=== PATIENT | female | born 1930 | race Caucasian/White ===

== ENCOUNTER 2016-02-29 09:00 | Outpatient (CLI) | payer MEDICARE, BC ==
[2016-02-29 12:22] LABS: #Basophils 0.1 thou/uL (0.0-0.2); #Eosinphils 0.5 thou/uL (0.0-0.7); #Lymphocytes 3.9 thou/uL (1.20-3.40); #Monocytes 0.5 thou/uL (0.11-0.59); #Neutrophils 4.3 thou/uL (1.40-6.50); %Basophils 1.2 % (0.0-1.0); %Eosinophils 5.4 % (0.0-10.0); %Monocytes 5.2 % (0.0-10.0); Hematocrit 45.1 % (36.0-47.0); Mean Platelet Volume 7.3 fL (7.4-10.4); Red Blood Cell (RBC) Count 4.94 mill/uL (4.20-5.40); White Blood Cell (WBC) Count 9.3 thou/uL (4.8-10.8)
[2016-02-29 12:26] LABS: Bilirubin Negative (Negative); Blood, Urine Negative (Negative); Glucose, Urine (Dipstick) Negative (Negative); Ketone, Urine Negative (Negative); Nitrite Negative (Negative); Protein, Urine (Dipstick) Negative (Neg-Trace); Urobilinogen 0.2 mg/dL (0.2-1.0)
[2016-02-29 12:36] LABS: Bacteria/HPF Rare-Few HPF (None Seen); RBC/HPF None Seen HPF (0-3); Squamous Epithelial 0-3 HPF (0-3); WBC/HPF 0-3 HPF (0-3)
[2016-02-29 12:39] LABS: ALT (SGPT) 26 U/L (0-55); AST (SGOT) 19 U/L (5-34); Alkaline Phosphatase 89 U/L (40-150); Anion Gap 12 mmol/L (10-20); BUN (Urea Nitrogen) 13 mg/dL (9.8-20.1); Bilirubin, Total 0.8 mg/dL (0.2-1.2); Calc. Creatinine Clearance 0 mL/min (70-130); Calcium 9.2 mg/dL (7.8-10.44); Carbon Dioxide 26 mmol/L (23-31); Chloride 107 mmol/L (98-107); Estimated GFR-MDRD 75; Globulin 2.4 g/dL (2.4-3.5); LDL Cholesterol, Calculated 57 mg/dL; Protein, Total 6.7 g/dL (5.8-8.1)
== END 2016-02-29 09:01 | disposition home or self-care (01) ==
LOC: NAVSJIPCSP 09:00
PROVIDERS: ATTEND Internal Medicine
DX: E78.5 Hyperlipidemia, unspecified (principal); I11.9 Hypertensive heart disease without heart failure; Z79.899 Other long term (current) drug therapy
CPT/HCPCS: 36415; 80053; 80061; 81003; 81015; 84443; 85025

== ENCOUNTER 2016-05-30 08:48 | Outpatient (CLI) | payer MEDICARE, BC ==
[2016-05-30 13:01] LABS: Cardiac Risk 2.7 (Less than 4.5)
== END 2016-05-30 08:49 | disposition home or self-care (01) ==
LOC: NAVSJIPCSP 08:48
PROVIDERS: ATTEND Internal Medicine
DX: E78.5 Hyperlipidemia, unspecified (principal)
CPT/HCPCS: 36415; 80061

== ENCOUNTER 2016-08-31 13:36 | Emergency (ER) | payer MEDICARE, BC ==
[2016-08-31] MEDS ORDERED: Ondansetron ODT 4 MG TAB ONE (14:05)
[2016-08-31] MEDS ORDERED: Cyclobenzaprine 10 MG TAB ONE (14:10)
--- NOTE | 2016-08-31 15:24 | RAD ---
3 VIEWS LUMBOSACRAL SPINE: Date: 08/31/16 COMPARISON: None. HISTORY: Fall this morning with right lower back pain. FINDINGS: Three views of the lumbosacral spine show slight wedge compression deformity of the L2 vertebral bod y with approximately 10% height loss. This may be acute or chronic. Vertebral bodies demonstrate nor mal alignment without subluxation. Small osteophytes are seen throughout the lumbar spine. Atherosclerotic calcifications are seen in the aorta. Surgical clips are seen in the right upper kathya drant, likely from cholecystectomy. IMPRESSION: 1. Mild degenerative changes of the lumbar spine. 2. There appears to be slight compression deformity of the L2 vertebral body. This may be an acute or chronic compression fracture. POS: [facility]
== END 2016-08-31 14:19 | disposition home or self-care (01) ==
LOC: NAV ERS 13:36
DX: M54.5 Low back pain (principal); J44.9 Chronic obstructive pulmonary disease, unspecified; I10 Essential (primary) hypertension; F17.210 Nicotine dependence, cigarettes, uncomplicated; Z79.82 Long term (current) use of aspirin; Z79.899 Other long term (current) drug therapy; X50.1XXA Overexertion from prolonged static or awkward postures, initial encounter
CPT/HCPCS: 72100; Q0162

== ENCOUNTER 2016-09-04 09:12 | Outpatient (CLI) | payer MEDICARE, BC ==
[2016-09-04 12:25] LABS: Cardiac Risk 2.1 (Less than 4.5)
== END 2016-09-04 09:13 ==
LOC: NAVSJIPCSP 09:12
PROVIDERS: ATTEND Internal Medicine
DX: E78.5 Hyperlipidemia, unspecified (principal); F32.4 Major depressive disorder, single episode, in partial remission; Z79.899 Other long term (current) drug therapy
CPT/HCPCS: 36415; 80061

== ENCOUNTER 2016-09-15 11:47 | Emergency (ER) | payer MEDICARE, BC ==
--- NOTE | 2016-09-15 13:08 | RAD ---
LEFT KNEE 4 VIEWS: Date: 09/15/16 HISTORY: Left knee pain. FINDINGS/IMPRESSION: Mild degenerative changes are present. No fracture, dislocation, or bony destruction identified. POS: [facility]
== END 2016-09-15 13:09 | disposition home or self-care (01) ==
LOC: NAV ERS 11:47
DX: M25.562 Pain in left knee (principal); I10 Essential (primary) hypertension; F17.210 Nicotine dependence, cigarettes, uncomplicated; J44.9 Chronic obstructive pulmonary disease, unspecified; Z79.82 Long term (current) use of aspirin; Z79.899 Other long term (current) drug therapy

== ENCOUNTER 2018-01-13 12:26 | Outpatient (CLI) | payer MEDICARE, BC ==
--- NOTE | 2018-01-13 13:47 | RAD ---
TWO VIEWS CHEST: DATE: 01/13/2018. PROVIDED CLINICAL HISTORY: Shortness of breath. FINDINGS: Comparison 11/17/2014. Cardiac and mediastinal silhouette is within normal limits. Vascular calcific ation involves the aortic arch. No focal consolidation, pleural fluid, or pneumothorax apparent. IMPRESSION: No evidence for an acute cardiopulmonary process. POS: [facility]
== END 2018-01-13 12:27 | disposition home or self-care (01) ==
LOC: NAV RAD 12:26
PROVIDERS: ATTEND Internal Medicine Cardiovascular Disease
DX: R06.02 Shortness of breath (principal)
CPT/HCPCS: 71046

== ENCOUNTER 2019-11-24 11:13 | Emergency (ER) | payer MEDICARE, BC ==
[2019-11-24] MEDS ORDERED: Acetaminophen/Codeine 30-300mg Tablet ONE (11:41)
--- NOTE | 2019-11-24 12:11 | CT ---
CT BRAIN WITHOUT CONTRAST: HISTORY:Injury, headache COMPARISON:None FINDINGS: There are foci of decreased attenuation in the periventricular white matter, consistent with chronic small vessel ischemic disease. There are changes of cortical atrophy. No evidence of acute infarct, hemorrhage, midline shift or abnormal extra-axial fluid collections is seen. The ventricular size is appropriate and the basilar cisterns are patent. The bony calvarium is intact. The visualized paranasal sinuses and mastoid air cells are well aerated. IMPRESSION: No CT evidence of acute intracranial process.
--- NOTE | 2019-11-24 12:25 | CT ---
CT of the lumbar spine: 11/24/2019 COMPARISON: CT of the abdomen and pelvis 07/20/2018 History: Injury TECHNIQUE: Axial CT imaging at 2.5 mm intervals through the lumbar spine provided without contrast. C oronal and sagittal reformatted imaging obtained. FINDINGS: Evaluation for central canal and/or neural foraminal stenosis is limited on routine CT exam . There are bibasilar partially imaged reticulonodular densities, unchanged when compared to 07/20/2018 CT of the abdomen and pelvis. Scattered atherosclerotic calcifications are seen involving the abdominal aorta and its branches, not optimally assessed on this exam. There is an infrarenal abdominal aortic aneurysm suspected measuring in the 3.1 cm range, only partia lly visualized on this exam. No significant anterolisthesis or retrolisthesis is noted within the lumbar spine. There is a anterior wedge compression fracture primarily involving the superior endplate with a sligh t burst configuration given minimal osseous retropulsion involving the L2 vertebral body. This fracture appears stable when compared to 07/20/2018 CT of the abdomen and pelvis. T12-L1: Mild bilateral facet hypertrophy with no osseous cause of significant central canal or neural foraminal stenosis. L1-2: Mild central canal stenosis on the basis of disc osteophyte complex and slight osseous retropul estuardo associated with superior endplate fracture at L2. No osseous cause of significant neural foraminal stenosis. L2-3: Mild bilateral facet hypertrophy with no osseous cause of significant central canal or neural f oraminal stenosis. L3-4: There is bilateral facet hypertrophy and hypertrophy of the ligamentum flavum. Probable mild ce ntral canal stenosis. Bilateral facet hypertrophy with probable mild bilateral neural foraminal stenosis. L4-5: There is disc space narrowing and disc bulge. There is prominent bilateral facet hypertrophy an d hypertrophy of ligamentum flavum. Moderate central canal stenosis is suspected. Moderate bilateral neural foraminal stenosis noted. L5-S1: Bilateral facet hypertrophy is noted. Probable mild/moderate central canal stenosis on the bas is of disc bulge and facet hypertrophy. Mild right and moderate left neural foraminal stenosis suspected. No worrisome lytic or blastic bone lesion. No acute fracture or dislocation. IMPRESSION: Chronic findings as detailed above. No evidence for an acute fracture is seen within the lumbar spine.
== END 2019-11-24 12:45 | disposition home or self-care (01) ==
LOC: NAV ERS 11:13
DX: S39.012A Strain of muscle, fascia and tendon of lower back, initial encounter (principal); S00.03XA Contusion of scalp, initial encounter; S00.83XA Contusion of other part of head, initial encounter; J44.9 Chronic obstructive pulmonary disease, unspecified; I10 Essential (primary) hypertension; F17.210 Nicotine dependence, cigarettes, uncomplicated; Z79.899 Other long term (current) drug therapy; Z79.82 Long term (current) use of aspirin; W18.30XA Fall on same level, unspecified, initial encounter
CPT/HCPCS: 70450; 72131

== ENCOUNTER 2020-02-14 11:21 | Inpatient (IN) | payer MEDICARE, BC ==
[~2020-02-14 11:21] MED LIST: Iopamidol 370 76% 100 ML VIAL ONE
[2020-02-14 11:52] LABS: #Lymphocytes 0.9 thou/uL (1.20-3.40); #Monocytes 0.4 thou/uL (0.11-0.59); #Neutrophils 4.7 thou/uL (1.40-6.50); %Basophils 0.3 % (0.0-1.0); %Lymphocytes 14.6 % (21.0-51.0); %Monocytes 5.9 % (0.0-10.0); %Neutrophils 79.2 % (42.0-75.0); Hemoglobin 13.5 g/dL (12.0-16.0); Mean Corpuscular Hemoglobin 27.3 pg (27.0-31.0); Mean Corpuscular Volume 87.9 fL (78.0-98.0); Mean Platelet Volume 9.1 fL (7.4-10.4); Platelet Count 125 thou/uL (130-400); RBC Distribution Width 13.2 % (11.5-14.5); Red Blood Cell (RBC) Count 4.97 mill/uL (4.20-5.40); White Blood Cell (WBC) Count 5.9 thou/uL (4.8-10.8)
--- NOTE | 2020-02-14 12:05 | RAD ---
EXAM: XR Chest 1 View Portable PROVIDED CLINICAL HISTORY: Shortness of breath COMPARISON: 07/20/2018 FINDINGS: Cardiac and mediastinal silhouettes is within normal limits for portable technique. Vascular calcific ation is seen involving the aortic arch. Prominence of the pulmonary interstitium is redemonstrated. Bibasilar subsegmental atelectatic changes are seen. No focal consolidation, pleural fluid or pneumothorax evident. IMPRESSION: No evidence for focal consolidation.
[2020-02-14 12:09] LABS: ALT (SGPT) 18 U/L (8-55); AST (SGOT) 26 U/L (5-34); Albumin 3.6 g/dL (3.4-4.8); Alkaline Phosphatase 67 U/L (40-110); Anion Gap 18 mmol/L (10-20); BUN (Urea Nitrogen) 21 mg/dL (9.8-20.1); Bilirubin, Total 0.4 mg/dL (0.2-1.2); Calc. Creatinine Clearance 0 mL/min (70-130); Calcium 7.9 mg/dL (7.8-10.44); Carbon Dioxide 19 mmol/L (23-31); Chloride 103 mmol/L (98-107); Globulin 2.5 g/dL (2.4-3.5); Glucose 101 mg/dL (83-110); Potassium 3.8 mmol/L (3.5-5.1); Protein, Total 6.1 g/dL (6.0-8.3); Sodium 136 mmol/L (136-145)
--- NOTE | 2020-02-14 13:49 | CT ---
CT arteriogram chest with IV contrast and 3-D imaging HISTORY: Dyspnea. COMPARISON: 02/26/2018. FINDINGS: There is good contrast opacification of the pulmonary arteries and thoracic aorta with norm al branching of the great vessels at the aortic arch. Prominent arterial calcification. Lungs are hyperinflated with scattered areas of parenchymal scarring. Small peripheral focus of groun dglass infiltrate now lies at the far anterior aspect of the right upper lobe, abutting the pleura. Of doubtful clinical significance. No lobar consolidation. Tiny nonspecific subpleural nodules within the left upper lobe are stable. Reactive appearing lymph nodes are scattered about the mediastinum, measuring up to 2.2 cm x 1.0 cm g reatest diameters at the subcarinal level. Calcified granulomata of the abdomen are consistent with healed granulomatous disease. Old right rib fractures noted. IMPRESSION : No evidence of pulmonary embolus.
[2020-02-14] MEDS ORDERED: Ondansetron PF 4 MG/2 ML Vial ONE (14:18)
[2020-02-14 15:27] LABS: SARS-CoV-2 NAA Rapid Test DETECTED (NotDetected)
[2020-02-14] MEDS ORDERED: Dexamethasone 20 MG/5 ML VIAL ONE (15:53)
[2020-02-14 18:05] VITALS: BMI 21.9
[2020-02-14] MEDS: Zinc Sulfate 220 MG CAP PO SCH (20:49)
[2020-02-15 05:34] LABS: Anion Gap 16 mmol/L (10-20); BUN (Urea Nitrogen) 20 mg/dL (9.8-20.1); Band 6 % (5-11); Calc. Creatinine Clearance 39 mL/min (70-130); Calcium 7.8 mg/dL (7.8-10.44); Carbon Dioxide 19 mmol/L (23-31); Chloride 107 mmol/L (98-107); Glucose 131 mg/dL (83-110); Hemoglobin 12.9 g/dL (12.0-16.0); Lymphocytes 20 % (21-51); MDiff Complete? YES; Mean Corpuscular HGB CONC 32.4 g/dL (32.0-36.0); Mean Corpuscular Volume 86.6 fL (78.0-98.0); Mean Platelet Volume 9.1 fL (7.4-10.4); Monocytes 8 % (0-10); Neutrophil 60 % (42-75); Platelet Count 128 thou/uL (130-400); Platelet Morphology Comment Appears Adequate; Potassium 3.7 mmol/L (3.5-5.1); RBC Morphology Normal; Reactive Lymphocytes 6 % (0-10); Red Blood Cell (RBC) Count 4.61 mill/uL (4.20-5.40); Sodium 138 mmol/L (136-145); White Blood Cell (WBC) Count 3.5 thou/uL (4.8-10.8)
[2020-02-15] MEDS: Levothyroxine Sodium 88 MCG TAB PO SCH (05:54)
[2020-02-15] MEDS: Enoxaparin Sodium 40 MG/0.4 ML SYRINGE SC SCH (08:50)
[2020-02-15] MEDS: Cholecalciferol 1,000 UNITS (25 MCG) TAB PO SCH (08:51)
[2020-02-15] MEDS: Lisinopril 10 MG TAB PO SCH (08:52)
[2020-02-15] MEDS: Zinc Sulfate 220 MG CAP PO SCH ×2 (08:52→22:23)
[2020-02-15] MEDS: Atorvastatin Calcium 40 MG TAB PO SCH (08:52)
[2020-02-15] MEDS: Aspirin 81 mg Enteric Coated Tablet PO SCH (08:53)
[2020-02-15] MEDS: Atenolol 25 MG TAB PO SCH (08:54)
[2020-02-15] MEDS: Amlodipine 5 MG TAB PO SCH (08:54)
[2020-02-15] MEDS: Dexamethasone 4 MG TAB PO SCH (08:55)
[2020-02-15] MEDS: TRELEGY ELLIPTA INHALER INH SCH (09:48)
[2020-02-15] MEDS ORDERED: Ipratropium/Albuterol Sulfate 4 GM AER IH SCH ×2 (13:00→22:15)
--- NOTE | 2020-02-15 13:46 | PRG ---
DATE OF SERVICE: 02/15/2020 SUBJECTIVE: Ms. Bateman is resting in bed. She is upset that she cannot get up on her own. I advised her that it is for her own benefit and safety. She denies any chest pain or shortness of breath. OBJECTIVE: VITAL SIGNS: She is afebrile. Heart rate 76, respirations 20, oxygen saturation 93% on 3 L, blood pressure 129/61. CARDIOVASCULAR: S1, S2 plus. RESPIRATORY: Normal vesicular breath sounds with occasional rhonchi. ABDOMEN: Soft, nontender. Bowel sounds heard in all quadrants. EXTREMITIES: Without cyanosis or clubbing. CENTRAL NERVOUS SYSTEM: Generalized weakness, otherwise nonfocal. IMPRESSION: 1. Recent COVID-19 infection. 2. Resolved diarrhea. 3. Coronary artery disease. 4. Hypertension. 5. Dyslipidemia. 6. Hypothyroidism. 7. Deconditioning. PLAN: 1. Continue current medications. 2. Heart healthy diet. 3. DVT prophylaxis with Lovenox. 4. Decubitus precautions. 5. Stress ulcer prophylaxis. 6. Monitor respiratory status. 7. She has been switched to Combivent for some reason. She is on DuoNeb at home and she has end-stage COPD. We will switch her back to DuoNebs. PT/OT eval and treat. Job ID: [id number]
--- NOTE | 2020-02-15 14:40 | HP ---
CHIEF COMPLAINT: Cough and shortness of breath with COVID positive by RT-PCR. BRIEF HISTORY: This is an 89-year-old female with history of chronic obstructive pulmonary disease and chronic hypoxemic respiratory failure, on home oxygen, presented to the emergency room because she was feeling weak with shortness of breath and diarrhea. Her laboratory values showed a normal lactic acid level, but an elevated D-dimer. CTA lungs did not show any pulmonary emboli, but showed peripheral localized ground-glass infiltrate. She had a rapid COVID RT-PCR done which turned out to be positive. Her influenza screen was negative. She lives alone at home and it was decided to admit her to the hospital for close monitoring and management. The patient stated that she was weak and she was having trouble getting out of bed. She was maintaining her oxygen saturation on her baseline oxygen of 2 L via nasal cannula. Denies any myalgia. She was admitted to the hospital with Decadron 6 mg daily, vitamin D 2000 international units daily, Zinc 220 mg b.i.d., and Lovenox 40 mg daily along with her home medications. PAST MEDICAL HISTORY: 1. Chronic obstructive pulmonary disease, likely GOLD stage 3 to 4. 2. Chronic hypoxemic respiratory failure. 3. Hypertension. 4. Dyslipidemia. 5. Coronary artery disease. 6. Hypothyroidism. PAST SURGICAL HISTORY: 1. Cholecystectomy. 2. Benign right breast mass removal. FAMILY HISTORY: Positive for coronary artery disease in both her parents. PSYCHOSOCIAL HISTORY: Long-standing history of smoking. She has more than a [id number] history of smoking. She quit in 2016. Denies any alcohol or recreational drug abuse. She lives at home alone and is active and independent. ALLERGIES: NO KNOWN DRUG ALLERGIES. MEDICATIONS: Her current med list shows that she is on; 1. Norvasc 10 mg daily. 2. Ecotrin 81 mg daily. 3. Tenormin 25 mg daily. 4. Lipitor 80 mg daily. 5. Vitamin D3 2000 units daily. 6. Levoxyl 88 mcg daily. 7. Lisinopril 10 mg daily. 8. Trelegy Ellipta one inhalation daily. 9. Tramadol 50 mg q.8 p.r.n. 10. She is also on Combivent q.i.d., because at home she was taking the DuoNeb. We will discontinue Combivent and place her on DuoNeb. REVIEW OF SYSTEMS: CARDIOVASCULAR: Denies any chest pain, paroxysmal nocturnal dyspnea, orthopnea, or palpitations. RESPIRATORY SYSTEM: Occasional cough. Denies any expectoration. Denies any pleuritic-type chest pain. Denies any hemoptysis. GASTROINTESTINAL SYSTEM: Diarrhea a couple of episodes, but no hematemesis, melena, or hematochezia. No nausea or vomiting. GENITOURINARY SYSTEM: Denies any frequency, urgency, dysuria, hematuria. CENTRAL NERVOUS SYSTEM: Generalized weakness. No fainting spells. No seizure activity. EXTREMITIES: Frequent joint pain. ENT: Denies any changes with speech, vision, hearing, or swallowing. SKIN: Denies any rash. PHYSICAL EXAMINATION: GENERAL: Pleasant 89-year-old female, who is resting in bed in the emergency room. Denies any complaints. VITAL SIGNS: She is afebrile. She has a T-max of 100.1, heart rate 87, respirations 19, oxygen saturation 98% on 2 L, blood pressure 140/65. HEENT: Normocephalic, atraumatic. Pupils equally reactive to light and accommodation. No JVD, thyromegaly, cervical adenopathy, or throat exudates. No carotid bruits. CARDIOVASCULAR SYSTEM: S1 and S2 plus. Rate and rhythm regular. RESPIRATORY SYSTEM: Normal vesicular breath sounds heard in all lung sharpe. Prolonged expiratory phase and scattered rhonchi. ABDOMEN: Soft, nontender. Bowel sounds heard in all quadrants. EXTREMITIES: Without cyanosis or clubbing. CENTRAL NERVOUS SYSTEM : Generalized weakness, otherwise nonfocal. LABORATORY VALUES: Show a white count of 5.9, H and H are 13.5 and 43.7, platelet count is slightly low at 125, 79.2% neutrophils with decreased lymphocytes. Sodium 136, potassium 3.8, BUN and creatinine are 21 and 0.9. AST and ALT are 26 and 18. D-dimer was elevated at 1.11. IMPRESSION: 1. COVID-19 positive. 2. Chronic obstructive pulmonary disease. 3. Chronic hypoxemic respiratory failure. 4. Coronary artery disease. 5. Hypertension. 6. Dyslipidemia. 7. Hypothyroidism. 8. Depression and anxiety. PLAN: 1. Admit to hospital as inpatient. 2. Respiratory droplet precautions. 3. Start Decadron 6 mg daily, vitamin D3 2000 international units daily, and zinc 220 mg b.i.d. 4. Lovenox 40 mg daily. 5. Heart healthy diet. 6. Monitor respiratory status and breathing treatments as needed. 7. DVT prophylaxis-she will be on Lovenox. 8. Decubitus precautions. 9. Recheck CBC and BMP in the morning. 10. Resume home medications. 11. Heart healthy diet. 12. Discussed with the patient in detail. All questions answered. Job ID: [id number]
[2020-02-15] MEDS ORDERED: Ventolin HFA Inhaler 60 PUFF INHALER ONE (22:36)
[2020-02-16] MEDS: Levothyroxine Sodium 88 MCG TAB PO SCH (06:31)
[2020-02-16] MEDS: Ipratropium/Albuterol Sulfate 4 GM AER IH SCH ×4 (09:20→20:49)
[2020-02-16] MEDS: TRELEGY ELLIPTA INHALER INH SCH (09:20)
[2020-02-16] MEDS: Dexamethasone 4 MG TAB PO SCH (09:32)
[2020-02-16] MEDS: Amlodipine 5 MG TAB PO SCH (09:33)
[2020-02-16] MEDS: Aspirin 81 mg Enteric Coated Tablet PO SCH (09:34)
[2020-02-16] MEDS: Atorvastatin Calcium 40 MG TAB PO SCH (09:34)
[2020-02-16] MEDS: Atenolol 25 MG TAB PO SCH (09:34)
[2020-02-16] MEDS: Zinc Sulfate 220 MG CAP PO SCH ×2 (09:35→20:49)
[2020-02-16] MEDS: Lisinopril 10 MG TAB PO SCH (09:35)
[2020-02-16] MEDS: Cholecalciferol 1,000 UNITS (25 MCG) TAB PO SCH (09:35)
[2020-02-16] MEDS: Enoxaparin Sodium 40 MG/0.4 ML SYRINGE SC SCH (09:35)
--- NOTE | 2020-02-16 13:49 | PRG ---
DATE OF SERVICE: 02/16/2020 SUBJECTIVE: Ms. Bateman is participating with therapy. Therapy feels that she is stable enough to be taken off fall precautions and bed alarm. The patient states she is now constipated and she normally takes MiraLAX at home, so we will get her back on her MiraLAX. She denies any respiratory difficulty. No fever or chills. OBJECTIVE: VITAL SIGNS: She is afebrile. Heart rate 82, respirations 18, oxygen saturation 94% on 3 L, blood pressure this morning before her medicines was 171/75. I do not see any new ones documented, and I asked nursing to recheck and let me know if it is still more than 140/90. CARDIOVASCULAR SYSTEM: S1 and S2 plus. RESPIRATORY SYSTEM: Normal vesicular breath sounds. ABDOMEN: Soft, nontender. Bowel sounds heard in all quadrants. EXTREMITIES: Without cyanosis or clubbing. CENTRAL NERVOUS SYSTEM: Generalized weakness, otherwise nonfocal. IMPRESSION: 1. COVID infection. 2. Chronic obstructive pulmonary disease. 3. Chronic hypoxemic respiratory failure. 4. Hypertension. 5. Dyslipidemia. 6. Hypothyroidism. 7. Deconditioning. PLAN: 1. Continue current medications. 2. Resume MiraLAX 17 g in 8 ounces of water daily. 3. Combivent as needed. 4. COVID precautions. 5. Physical therapy. 6. Home medications. 7. Routine laboratory values. 8. Dr. Infante on-call from this evening. Job ID: [id number]
[2020-02-16] MEDS ORDERED: Polyethylene Glycol 3350 17 GM Packet PO SCH (14:00)
[2020-02-17] MEDS: Levothyroxine Sodium 88 MCG TAB PO SCH (05:51)
[2020-02-17] MEDS: Dexamethasone 4 MG TAB PO SCH (09:05)
[2020-02-17] MEDS: Aspirin 81 mg Enteric Coated Tablet PO SCH (09:06)
[2020-02-17] MEDS: Amlodipine 5 MG TAB PO SCH (09:06)
[2020-02-17] MEDS: Atorvastatin Calcium 40 MG TAB PO SCH (09:07)
[2020-02-17] MEDS: Atenolol 25 MG TAB PO SCH (09:07)
[2020-02-17] MEDS: Enoxaparin Sodium 40 MG/0.4 ML SYRINGE SC SCH (09:08)
[2020-02-17] MEDS: Ipratropium/Albuterol Sulfate 4 GM AER IH SCH ×4 (09:08→20:03)
[2020-02-17] MEDS: Cholecalciferol 1,000 UNITS (25 MCG) TAB PO SCH (09:08)
[2020-02-17] MEDS: Lisinopril 10 MG TAB PO SCH (09:08)
[2020-02-17] MEDS: TRELEGY ELLIPTA INHALER INH SCH (09:09)
[2020-02-17] MEDS: Zinc Sulfate 220 MG CAP PO SCH ×2 (09:09→20:02)
[2020-02-17] MEDS: Polyethylene Glycol 3350 17 GM Packet PO SCH (09:09)
[2020-02-17] MEDS: traMADol HCl 50 MG TAB PO PRN (14:12)
[2020-02-17] MEDS: Docusate 100 MG CAP PO SCH (20:02)
[2020-02-18] MEDS: Levothyroxine Sodium 88 MCG TAB PO SCH (05:21)
[2020-02-18] MEDS: Docusate 100 MG CAP PO SCH (08:40)
[2020-02-18] MEDS: Aspirin 81 mg Enteric Coated Tablet PO SCH (08:40)
[2020-02-18] MEDS: Zinc Sulfate 220 MG CAP PO SCH (08:40)
[2020-02-18] MEDS: Amlodipine 5 MG TAB PO SCH (08:41)
[2020-02-18] MEDS: Cholecalciferol 1,000 UNITS (25 MCG) TAB PO SCH (08:41)
[2020-02-18] MEDS: Atenolol 25 MG TAB PO SCH (08:41)
[2020-02-18] MEDS: Dexamethasone 4 MG TAB PO SCH (08:42)
[2020-02-18] MEDS: Atorvastatin Calcium 40 MG TAB PO SCH (08:42)
[2020-02-18] MEDS: Lisinopril 10 MG TAB PO SCH (08:42)
[2020-02-18] MEDS: Polyethylene Glycol 3350 17 GM Packet PO SCH (08:43)
[2020-02-18] MEDS: Enoxaparin Sodium 40 MG/0.4 ML SYRINGE SC SCH (08:43)
[2020-02-18] MEDS: TRELEGY ELLIPTA INHALER INH SCH (08:51)
[2020-02-18] MEDS: Ipratropium/Albuterol Sulfate 4 GM AER IH SCH (08:54)
--- NOTE | 2020-02-18 09:23 | PRG ---
DATE OF SERVICE: 02/17/[address] Landon Moreno. SUBJECTIVE: The patient feels weak with malaise, but is having no fever, chills, cough. Still complaining of some constipation, but has begun on her MiraLAX. She is having no respiratory distress, but does not feel well. OBJECTIVE: VITAL SIGNS: Show a temperature of 98, pulse 80, respirations 18, O2 sats 94% on 2 L, blood pressure 150/63. LUNGS: Clear. CARDIAC: Showed regular rhythm. ABDOMEN: Soft and nontender. SKIN/EXTREMITIES: Display no edema, clubbing, or cyanosis. ASSESSMENT: An 89-year-old white female with a history of COPD and chronic hypoxemia with requirement of 2 L cannula at home, who was had no change in her hypoxemia, but because of her risk, she was admitted to the hospital, has been started on Decadron 6 mg daily, vitamin D 2000 units daily, zinc 220 twice daily, and Lovenox 40 daily along with her home medications. She states she feels about the same with no deterioration in her respiratory status, but no improvement in her strength. She is working with therapy and is found to be safe to ambulate in the isolation room. She has been maintained on isolation and will be maintained on isolation for 10 days until she is symptom she will be monitored closely for deterioration of her cardiopulmonary status. Her constipation will be monitored closely that has remained symptom at this time and she will be continued with PT and OT in the isolation. Job ID: [id number]
[2020-02-18] MEDS: traMADol HCl 50 MG TAB PO PRN (10:54)
--- NOTE | 2020-02-18 11:08 | PRG ---
DATE OF SERVICE: 02/18/[address] Landon Moreno. SUBJECTIVE: The patient is having increased dyspnea, nausea, production of phlegm, and the significant desaturation on ambulation to the bathroom. Has had her O2 sats decreased to 93%, requiring 6 L of cannula and is being placed on a non-rebreather. Lungs show crackles in the bases. Respiratory rate increases to 30 with any exercise. She is not eating. States she is feeling worse. OBJECTIVE: LUNGS: Show crackles in the bases. CARDIAC: Shows rapid regular rhythm to 112. Respirations ranged from 20 to 30. ABDOMEN: Soft, nontender. ASSESSMENT: COVID-19 pneumonia with increasing respiratory failure and impending decompensation, provide treatment with Decadron in a patient with a history of chronic hypoxemia and chronic obstructive pulmonary disease. PLAN: Urgently transfer to [facility] as soon as bed is available. Maintain one-to-one nursing until that time. Increase oxygen supply to non-rebreather, which is the highest we have available here. Continue to inhale Combivent 4 times daily. Job ID: [id number]
[2020-02-18 11:11] VITALS: TEMP 97.7
[2020-02-18 11:44] VITALS: BP 156/70
--- NOTE | 2020-02-18 11:55 | RAD ---
XR Chest 1 View Portable HISTORY: Dyspnea.Covid 19 Hypoxemia COMPARISON: 02/14/2020 FINDINGS: The heart size is normal. There is tortuous. There is mild prominence of the pulmonary vasc ularity. The lungs are well expanded without focal areas of consolidation, pneumothorax or pleural effusions. IMPRESSION: No evidence of lobar pneumonia
--- NOTE | 2020-02-22 17:57 | PQF ---
CLINICAL DOCUMENTATION CLARIFICATION FORM: Dear : Michael Infante MD Date / Time: 02/22/2020 Please exercise your independent, professional judgment in responding to the clarification form. Clinical indicators are provided on the bottom of this form for your review Please check appropriate box(es): [ ] Acute Respiratory Failure: [ ] with Hypoxia [ ] with Hypercapnia [ ] Acute On Chronic Respiratory Failure: [ ] with Hypoxia [ ] with Hypercapnia [ ] Acute Respiratory Failure due to: (etiology) [ ] ARDS (Acute Respiratory Distress Syndrome) [ ] Chronic Respiratory Failure only [ ] with Hypoxia [ ] with Hypercapnia [ ] Respiratory Insufficiency [ ] Hypoxia [ ] Other diagnosis (Please specify if any) [ ] Unable to determine In addition, please specify: Present on Admission (POA): [ ] Yes [ ] No [ ] Unable to determine Physician Signature: Date/Time: For continuity of documentation, please document condition throughout progress notes and discharge summary. Thank You. To be completed by CDI/Coding staff for physician review: Present Clinical Indicators - Signs / Symptoms / Labs Results and Location in Medical Record [ ] ABG pH < 7.35 or > 7.45 [ ] Decreased oxygen saturation (<90% room air or < 95% on oxygen). Cyanosis/Hypoxia [ ] PCO2 > 50 mm Hg (PCO2 findings of 10-15 mm Hg above the patient's normal level if patient has COPD) [ ] PO2 < 60 mm Hg (PCO2 findings of 10-15 mm Hg below the patient's normal level if patient has COPD) [ ] Labored or rapid respirations (use of accessory muscles or inability to speak full sentences, air hunger) [x] Chronic hypoxic respiratory failure on home oxygen H&P on 02/14 [x] She states she feels about the same with no deterioration in her respiratory status Progress notes on 02/16 [x] Has had her O2 sats decreased to 93% requiring 6Lof cannula& being placed on non rebreather Progress notes on 02/17 [x] COVID pneumonia with increasing respiratory failure & impending decomepnsation Progress notes on 02/17 [ ] Bilateral opacities in CXR/CT Chest [ ] Respiratory symptoms within one week of known clinical insult (not due to CHF or fluid overload) Present Risk Factors Results and Location in Medical Record [x] History of home O2 use H&P on 02/14 [ ] Recent surgery [ ] Chest trauma [x] COPD exacerbation, COVID positive H&P on 02/14 [ ] CHF exacerbation [ ] Tobacco abuse / exposure [ ] Pneumonia [ ] CVA [ ] AMI Present Treatments Results and Location in Medical Record [x] Oxygen 3L O flow rate on 02/14 [x] Monitoring of respiratory status Progress notes on 02/14 [ ] Mechanical ventilation / BiPAP [x] Increased oxygen supply to non-breather which is highest we have availabe here Progress notes on 02/17 [ ] Serial CXR [ ] ABGs [ ] Antibiotics IV [ ] Bronchodilators [ ] Diuresis [ ] Pulmonary Consult [ ] ICU/Stepdown CDS/Cash Processing Specialist Signature: ANDREW Phone #: Date/Time: 02/22/2020 Acute Respiratory Failure: ABG pH < 7.35 or > 7.45; Decreased oxygen saturation (<90% room air or < 95% on oxygen); PCO2 > 50 mm Hg; PO2 < 60 mm Hg; Labored or rapid respirations ARDS: Dx Criteria [[place] ARDS]: Respiratory symptoms within one week of a known clinical insult (e.g. shock, infection, surgery, trauma) Bilateral opacities in CXR/Chest CT not due to CHF or fluid This is a permanent part of the Medical Record MTDD
== END 2020-02-18 12:15 | disposition short-term general hospital (02) | DRG 178 ==
LOC: NAV ERS 11:21 → UNDOADMIN 17:12 → NAV ACUTE 17:12
PROVIDERS: ADMIT Internal Medicine; ATTEND Internal Medicine
PROC: 8E0ZXY6 Isolation (ICD-10-PCS; principal; 2020-02-14)
DX: U07.1 COVID-19 (principal); J96.11 Chronic respiratory failure with hypoxia; I10 Essential (primary) hypertension; E03.9 Hypothyroidism, unspecified; E78.5 Hyperlipidemia, unspecified; I25.10 Atherosclerotic heart disease of native coronary artery without angina pectoris; F41.9 Anxiety disorder, unspecified; R53.81 Other malaise; R19.7 Diarrhea, unspecified; F32.9 Major depressive disorder, single episode, unspecified; J44.9 Chronic obstructive pulmonary disease, unspecified; Z99.81 Dependence on supplemental oxygen; Z95.5 Presence of coronary angioplasty implant and graft; Z90.49 Acquired absence of other specified parts of digestive tract; Z87.891 Personal history of nicotine dependence; Z98.890 Other specified postprocedural states; Z79.82 Long term (current) use of aspirin; Z79.899 Other long term (current) drug therapy; Z79.890 Hormone replacement therapy; Z82.49 Family history of ischemic heart disease and other diseases of the circulatory system
CPT/HCPCS: 0240U; 36415; 71045; 71275; 80048; 80053; 83605; 83880; 84484; 85025; 85379; 87040; 93005; 94640; 94760; 96374; 96375; J1100; J1650; J2405; J7620; J8540; Q9967

== ENCOUNTER 2020-02-28 13:44 | Observation (INO) | payer MEDICARE, BC ==
[2020-02-28 14:12] LABS: #Lymphocytes 0.8 thou/uL (1.20-3.40); #Monocytes 0.3 thou/uL (0.11-0.59); #Neutrophils 15.4 thou/uL (1.40-6.50); %Basophils 0.1 % (0.0-1.0); %Lymphocytes 4.8 % (21.0-51.0); %Monocytes 1.5 % (0.0-10.0); %Neutrophils 93.7 % (42.0-75.0); Hemoglobin 13.2 g/dL (12.0-16.0); Mean Corpuscular HGB CONC 31.5 g/dL (32.0-36.0); Mean Corpuscular Hemoglobin 27.5 pg (27.0-31.0); Mean Corpuscular Volume 87.2 fL (78.0-98.0); Platelet Count 271 thou/uL (130-400); RBC Distribution Width 13.1 % (11.5-14.5); Red Blood Cell (RBC) Count 4.79 mill/uL (4.20-5.40); White Blood Cell (WBC) Count 16.4 thou/uL (4.8-10.8)
--- NOTE | 2020-02-28 14:27 | RAD ---
CHEST 1 VIEW: Date: 02/28/2020 HISTORY: Shortness of breath. COMPARISON: Radiograph dated 02/23/2020. FINDINGS: Similar bibasilar air space opacities. No pneumothorax. Heart size is similar. No acute osseous abnor mality. IMPRESSION: Similar examination of the chest with multifocal pneumonia. POS: [facility]
[2020-02-28 14:33] LABS: ALT (SGPT) 31 U/L (8-55); AST (SGOT) 22 U/L (5-34); Alkaline Phosphatase 57 U/L (40-110); Anion Gap 18 mmol/L (10-20); BUN (Urea Nitrogen) 17 mg/dL (9.8-20.1); Bilirubin, Total 0.7 mg/dL (0.2-1.2); CK (CPK) 31 U/L (29-168); Calc. Creatinine Clearance 0 mL/min (70-130); Calcium 7.9 mg/dL (7.8-10.44); Carbon Dioxide 20 mmol/L (23-31); Chloride 105 mmol/L (98-107); Globulin 3.1 g/dL (2.4-3.5); Glucose 136 mg/dL (83-110); Potassium 3.6 mmol/L (3.5-5.1); Protein, Total 6.1 g/dL (6.0-8.3); Sodium 139 mmol/L (136-145)
[2020-02-28 16:49] VITALS: BMI 21.2
[2020-02-28] MEDS: Atorvastatin Calcium 40 MG TAB PO SCH (21:52)
[2020-02-28] MEDS: Amlodipine 5 MG TAB PO SCH (21:52)
[2020-02-28] MEDS: Ipratropium/Albuterol Sulfate 4 GM AER IH SCH (21:53)
[2020-02-29] MEDS: Ipratropium/Albuterol Sulfate 4 GM AER IH SCH ×2 (06:10→11:04)
[2020-02-29] MEDS: Levothyroxine Sodium 100 MCG TAB PO SCH (06:10)
[2020-02-29] MEDS: Atenolol 25 MG TAB PO SCH (08:05)
[2020-02-29] MEDS: Aspirin 81 mg Enteric Coated Tablet PO SCH (08:05)
[2020-02-29] MEDS: Lisinopril 10 MG TAB PO SCH (08:05)
[2020-02-29] MEDS: Doxycycline 100 MG CAP PO SCH ×2 (08:06→21:26)
[2020-02-29] MEDS ORDERED: predniSONE 1 MG TAB PO SCH ×2 (09:00→10:15)
[2020-02-29] MEDS ORDERED: FLU VACC QS2020-21(65YR UP)/PF 240 MCG/0.7 ML SYRINGE IM ONE (09:00)
[2020-02-29] MEDS ORDERED: predniSONE 5 MG TAB PO SCH ×2 (10:00→10:15)
[2020-02-29] MEDS: Dexamethasone 4 MG TAB PO SCH (11:04)
--- NOTE | 2020-02-29 13:39 | PRG ---
DATE OF SERVICE: 02/29/2020 SUBJECTIVE: Ms. Bateman is resting in bed and stating that she is having difficulty breathing. She apparently did not bring her trilogy with her. She is on Combivent and feels like it is not helping. She is maintaining her oxygen saturation. Plan is to switch her to DuoNeb and see how she does. If she does not improve with the DuoNeb, then may need to get her on higher dose steroids as she does have at least GOLD stage 3 COPD. Her daughter is waiting for the [employer] to show up and see if there is any issues with the oxygen concentrator at home. I was hoping to discharge her today, but it may need to wait until tomorrow. OBJECTIVE: VITAL SIGNS: The patient is afebrile. Heart rate 73, respirations 18, oxygen saturation 95% on 3 L nasal cannula, blood pressure 110/67. CARDIOVASCULAR SYSTEM: S1 and S2 plus. RESPIRATORY SYSTEM: Normal vesicular breath sounds with occasional wheeze. ABDOMEN: Soft and nontender. Bowel sounds heard in all quadrants. EXTREMITIES: Without cyanosis or clubbing. CENTRAL NERVOUS SYSTEM: Generalized weakness, otherwise nonfocal. IMPRESSION: 1. Chronic obstructive pulmonary disease with possible exacerbation. 2. Recent COVID-19 infection. 3. Hypertension. 4. Dyslipidemia. 5. Hypothyroidism. 6. Coronary artery disease. 7. Anxiety and depression. 8. Chronic hypoxemic respiratory failure. PLAN: 1. Change Combivent to DuoNeb q.4 while awake. 2. Continue trilogy. Advised the patient that if she does not have it here to have her daughter bring it. 3. Continue other medications. 4. Heart healthy diet. 5. Monitor respiratory status. 6. DVT prophylaxis with PlexiPulses. 7. Activity as tolerated. 8. Decubitus precautions. 9. Stress ulcer prophylaxis. 10. Anticipate discharging her to home once her breathing is back to baseline and her oxygen concentrator has been evaluated. The patient also states that currently her nebulizer is not working and apparently they are delivering a new one in, so we will make sure that is available as well. Job ID: [id number]
[2020-02-29] MEDS ORDERED: Polyethylene Glycol 3350 17 GM Packet PO SCH (15:00)
[2020-02-29] MEDS: VILANTEROL INH SCH (15:01)
[2020-02-29] MEDS: UMECLIDINIUM INH SCH (15:01)
[2020-02-29] MEDS: Amlodipine 5 MG TAB PO SCH (21:22)
[2020-02-29] MEDS: Atorvastatin Calcium 40 MG TAB PO SCH (21:25)
[2020-03-01] MEDS: Levothyroxine Sodium 100 MCG TAB PO SCH (05:32)
[2020-03-01] MEDS ORDERED: predniSONE 5 MG TAB PO SCH (08:00)
[2020-03-01] MEDS ORDERED: Polyethylene Glycol 3350 17 GM Packet PO SCH (09:00)
[2020-03-01] MEDS: Aspirin 81 mg Enteric Coated Tablet PO SCH (10:47)
[2020-03-01] MEDS: Atenolol 25 MG TAB PO SCH (10:47)
[2020-03-01] MEDS: Dexamethasone 4 MG TAB PO SCH (10:47)
[2020-03-01] MEDS: Lisinopril 10 MG TAB PO SCH (10:48)
[2020-03-01] MEDS: Doxycycline 100 MG CAP PO SCH (10:48)
[2020-03-01] MEDS: VILANTEROL INH SCH (10:53)
[2020-03-01] MEDS: UMECLIDINIUM INH SCH (10:53)
[2020-03-01 13:01] VITALS: BP 97/57; TEMP 97.8
--- NOTE | 2020-03-02 01:01 | DIS ---
DATE OF ADMISSION: 02/28/2020 DATE OF DISCHARGE: 03/01/2020 PRINCIPAL DIAGNOSIS: Chronic obstructive pulmonary disease with possible exacerbation. SECONDARY DIAGNOSES: 1. Recent COVID-19 infection. 2. Acute on chronic hypoxemic respiratory failure. 3. Hypertension. 4. Dyslipidemia. 5. Hypothyroidism. 6. Coronary artery disease. 7. Anxiety and depression. 8. Deconditioning. COMPLICATIONS: None. ADVERSE REACTIONS: None. PROCEDURES: None. CONSULTATIONS: None. HOSPITAL COURSE: The patient was admitted after she presented to the hospital with worsening shortness of breath. She apparently tried to increase her oxygen at her home, but did not notice any improvement and her maximum oxygen saturation was 91%. When she came to the ER, she was placed on 3 L of oxygen and her oxygen saturation was up to 98%. Suspicion is that there may be something wrong with her oxygen concentrator at home, so she was admitted overnight for observation. She did well the first day, but then the second day, she started complaining of shortness of breath and her oxygen needed to be increased to 4 L. I changed her from Combivent inhaler to DuoNeb via nebulizer and that seemed to help a little. Spoke with her daughter, who had the [employer] come by and evaluate the concentrator and apparently the patient has a 50-foot oxygen hose connected to her concentrator which is capable only of a 40-foot hose to push the 3 L, so she needs a high capacity concentrator which I will order and she is also having worsening shortness of breath. Plan is to transfer her to skilled unit, continue therapy, and monitor her respiratory status. She is still on Decadron. This morning, her lungs did sound better even though the patient still felt pretty weak and that is another reason to switch her to swing bed and consult therapy. PHYSICAL EXAMINATION: VITAL SIGNS: On the day of discharge, the patient is afebrile, heart rate 87, respirations 18, oxygen saturation 94% on 4 L, and blood pressure is 106/59. CARDIOVASCULAR SYSTEM: S1, S2 plus. RESPIRATORY SYSTEM: Normal vesicular breath sounds. ABDOMEN: Soft, nontender. Bowel sounds heard in all quadrants. EXTREMITIES: Without cyanosis or clubbing. CENTRAL NERVOUS SYSTEM: Generalized weakness. MEDICATIONS: 1. Norvasc 10 mg daily. 2. Ecotrin 81 mg daily. 3. Tenormin 25 mg daily. 4. Lipitor 80 mg at bedtime. 5. Decadron 4 mg in the morning. 6. Vibramycin 100 mg b.i.d. for four more days. 7. Synthroid 100 mcg in the morning. 8. Lisinopril 10 mg daily. 9. Trelegy inhalation once daily. 10. MiraLAX 17 g in 8 ounces of water daily. PLAN: Transfer her to skilled bed on current medications. Consult PT, OT. Routine labs tomorrow. Heart-healthy diet. Monitor respiratory status. For full details, please see chart. Job ID: [id number]
--- NOTE | 2020-03-02 06:26 | SS ---
DATE OF ADMISSION: 02/28/2020 DATE OF DISCHARGE: 03/01/2020 CHIEF COMPLAINT: Shortness of breath. BRIEF HISTORY: This is a pleasant 89-year-old female who was admitted to [facility] with COVID-19 and worsening shortness of breath. She was treated appropriately and was discharged home on 02/24. Apparently, patient noticed significant shortness of breath and was unable to keep her oxygen saturation up even with her oxygen at home turned all the way up, so she present to the emergency room. Here while on 3 L of oxygen her saturation has remained 98%. She normally is on 3 L of oxygen, so it seems like there may be a problem with either her tubing or her concentrator. Plan is to admit her to the hospital under observation. Arrangements have been made by daughter to have the [employer] come by and check on her oxygen concentrator tomorrow and if everything is sorted out, then we will discharge her tomorrow. The patient currently states that she is breathing much easier and is pretty much back to her baseline. She is supposed to be taking doxycycline for 7 days from the , dexamethasone 6 mg daily and vitamin C 1000 mg daily for a month. She is also on aspirin 81 daily. I am not sure whether the current med list is accurate. They do not have the right medications. We will talk to the nursing and get that sorted out. PAST MEDICAL HISTORY: 1. Hypertension. 2. Dyslipidemia. 3. Hypothyroidism. 4. Chronic obstructive pulmonary disease. 5. Chronic hypoxemic respiratory failure. 6. Coronary artery disease. 7. Anxiety. 8. Depression. PAST SURGICAL HISTORY: 1. Cholecystectomy. 2. Benign right breast mass removal. FAMILY HISTORY: Positive for coronary artery disease. PSYCHOSOCIAL HISTORY: She has more than [id number] history of smoking. She quit in 2016. Denies any alcohol or recreational drug abuse. She lives at home alone and is active and independent. ALLERGIES: NO KNOWN DRUG ALLERGIES. MEDICATIONS: When she was discharged home from here, she was supposed to be on: 1. Norvasc 10 mg daily. 2. Ecotrin 81 mg daily. 3. Tenormin 25 mg daily. 4. Lipitor 80 mg daily. 5. Levoxyl 88 mcg daily. 6. Lisinopril 10 mg daily. 7. Trelegy Ellipta one inhalation daily. 8. Vitamin D3 2000 international units daily. 9. Tramadol 50 mg q.8h p.r.n. 10. DuoNeb q.i.d. p.r.n. When she was discharged from the [facility] she was on: 1. Doxycycline 100 mg b.i.d. for seven days. 2. Dexamethasone 6 mg daily for 14 days. 3. Vitamin C 1000 mg daily for 30 days. REVIEW OF SYSTEMS: CARDIOVASCULAR SYSTEM: Denies any chest pain, baseline shortness of breath. Denies any palpitations, PND, orthopnea, pedal edema. RESPIRATORY SYSTEM: Denies occasional cough. Rare expectoration. Denies any hemoptysis, improved shortness of breath. GASTROINTESTINAL SYSTEM: Denies any nausea, vomiting, constipation, hematemesis, melena, hematochezia. GENITOURINARY SYSTEM: Denies any frequency, urgency, dysuria, hematuria. CENTRAL NERVOUS SYSTEM: Denies any focal numbness, weakness, fainting spells. ENT: Denies any changes with speech, vision, hearing, or swallowing. EXTREMITIES: Occasional joint pain. SKIN: Denies any rash. CENTRAL NERVOUS SYSTEM: Denies any focal numbness, weakness, or fainting spells. PHYSICAL EXAMINATION: GENERAL: A pleasant 89-year-old female, who is up in bed and denies any concerns. She is awake, alert, and oriented x3. VITAL SIGNS: She is afebrile. Heart rate 79, respirations 20, oxygen saturation 99% on 3 L, and blood pressure is 125/85. CARDIOVASCULAR: S1-S2 plus. RESPIRATORY SYSTEM: Normal vesicular breath sounds with occasional rhonchi. ABDOMEN: Soft, nontender. Bowel sound heard in all quadrants. EXTREMITIES: Without cyanosis, clubbing. CENTRAL NERVOUS SYSTEM: A and 0 x 3. Cranial nerves 2 through 12 intact. Generalized weakness, otherwise nonfocal. LABORATORY DATE: Done in the emergency room shows a white count of 16.4, most likely due to steroids. H and H are 13.2 and 41.8. Sodium 139, potassium 3.6, BUN and creatinine 17 and 0.61. IMPRESSION: 1. Hypoxemia, which has resolved with oxygen here at her baseline level, so probably some equipment malfunction at home. 2. Recent COVID-19 infection. 3. Chronic hypoxemic respiratory failure. 4. Chronic obstructive pulmonary disease. 5. Hypertension. 6. Dyslipidemia. 7. Hypothyroidism. 8. Anxiety and depression. 9. Coronary artery disease. PLAN: 1. Continue home medications. 2. Have nursing correct her med list. 3. Combivent q.i.d. p.r.n. 4. Heart healthy diet. 5. Await DME evaluation at home. 6. Activity as tolerated. 7. Anticipate discharge home tomorrow once the cardiac event malfunction is sorted out. Job ID: [id number]
== END 2020-03-01 15:04 | disposition swing bed (61) ==
LOC: NAV ERS 13:44 → NAV ACUTE 15:44
PROVIDERS: ADMIT Internal Medicine; ATTEND Internal Medicine
DX: J44.9 Chronic obstructive pulmonary disease, unspecified (principal); J96.21 Acute and chronic respiratory failure with hypoxia; I10 Essential (primary) hypertension; E78.5 Hyperlipidemia, unspecified; E03.9 Hypothyroidism, unspecified; I25.10 Atherosclerotic heart disease of native coronary artery without angina pectoris; F41.9 Anxiety disorder, unspecified; F32.9 Major depressive disorder, single episode, unspecified; Z66 Do not resuscitate; Z86.16 Personal history of COVID-19; Z87.891 Personal history of nicotine dependence; Z79.2 Long term (current) use of antibiotics; Z79.82 Long term (current) use of aspirin; Z79.899 Other long term (current) drug therapy; Z95.5 Presence of coronary angioplasty implant and graft; Z99.81 Dependence on supplemental oxygen
CPT/HCPCS: 71045; 80053; 82550; 84484; 85025; 93005; 94640; G0378; J7512; J7620; J8540

== ENCOUNTER 2020-03-01 15:13 | Inpatient (IN) | payer MEDICARE, BC ==
[2020-03-01 16:19] VITALS: BMI 19.5
[2020-03-01] MEDS: Doxycycline 100 MG CAP PO SCH (21:09)
[2020-03-01] MEDS: Amlodipine 5 MG TAB PO SCH (21:10)
[2020-03-01] MEDS: Atorvastatin Calcium 40 MG TAB PO SCH (21:10)
[2020-03-02] MEDS: Levothyroxine Sodium 100 MCG TAB PO SCH (04:50)
[2020-03-02] MEDS: Aspirin 81 mg Enteric Coated Tablet PO SCH (08:37)
[2020-03-02] MEDS: Atenolol 25 MG TAB PO SCH (08:37)
[2020-03-02] MEDS: Dexamethasone 4 MG TAB PO SCH ×2 (08:38→08:39)
[2020-03-02] MEDS: Doxycycline 100 MG CAP PO SCH ×2 (08:38→20:46)
[2020-03-02] MEDS: Lisinopril 10 MG TAB PO SCH (08:38)
[2020-03-02] MEDS: TRELEGY INH SCH (08:39)
[2020-03-02] MEDS: Polyethylene Glycol 3350 17 GM Packet PO SCH (08:39)
[2020-03-02] MEDS: predniSONE 5 MG TAB PO SCH (08:40)
--- NOTE | 2020-03-02 20:12 | HP ---
PRINCIPAL DIAGNOSES: Possible chronic obstructive pulmonary disease exacerbation and deconditioning for therapy. BRIEF HISTORY: This is a pleasant 89-year-old female, who was admitted to the acute bed due to hypoxemia. This resolved when she was placed on 3 L of oxygen here. We felt that this was an issue with her home equipment, so [facility] went and evaluated the home equipment. Apparently, the patient had a 120-foot hose connected to the concentrator and it is not equipped to handle more than 25 feet. Apparently, initially they had said that they have high capacity concentrator, but when I wrote the order for high capacity concentrator and a 50-foot hose that is when [facility] called back and said no. She only needs 25-foot hose at home and what she has will handle it and they said she does not qualify for any other equipment. She was actually switched to swing bed because she was also noticing some shortness of breath and weakness. This morning, her breathing is much better and she states it is back to baseline. She also participated with therapy. PAST MEDICAL HISTORY: 1. Coronary artery disease. 2. Hypertension. 3. Dyslipidemia. 4. Hypothyroidism. 5. Chronic obstructive pulmonary disease. 6. Chronic hypoxemic respiratory failure. 7. Osteoarthritis. 8. Depression and anxiety. MEDICATIONS: 1. She is on DuoNeb q.4 p.r.n. 2. Norvasc 10 mg at bedtime. 3. Ecotrin 81 mg daily. 4. Tenormin 25 mg daily. 5. Lipitor 80 mg at bedtime. 6. Decadron 4 mg daily for I think six more days. 7. Vibramycin 100 mg b.i.d. for four more days. 8. Synthroid 100 mcg daily. 9. Lisinopril 10 mg daily. 10. Trelegy one puff and gargle after use. I am not sure why still on the prednisone, I will discontinue it. ALLERGIES: NO KNOWN DRUG ALLERGIES. FAMILY HISTORY: Noncontributory to current admission. PSYCHOSOCIAL HISTORY: Former smoker, quit about a few years ago. Denies any alcohol or recreational drug abuse. Active and independent. REVIEW OF SYSTEMS: CARDIOVASCULAR SYSTEM: Denies any chest pain, shortness of breath, palpitations, PND, orthopnea, pedal edema. RESPIRATORY SYSTEM: Denies any chronic cough, expectoration, pleuritic-type chest pain, or hemoptysis. Occasional dyspnea on exertion. GASTROINTESTINAL SYSTEM: Denies any nausea, vomiting, diarrhea, constipation, hematemesis, melena, hematochezia. GENITOURINARY SYSTEM: Denies any frequency, urgency, dysuria, hematuria. CENTRAL NERVOUS SYSTEM: Denies any focal numbness, weakness, or fainting spells. EXTREMITIES: Does complain of frequent joint pains. SKIN: Denies any rash. HEENT: Denies any changes with speech, vision, hearing, or swallowing. PHYSICAL EXAMINATION: GENERAL: Very pleasant 89-year-old female, who is up in bed and states she feels much better. She is alert, awake, and oriented x3. VITAL SIGNS: She is afebrile. Heart rate 99; respirations 18; oxygen saturation 93% on 3.5 L; and blood pressure early this morning was 190/80, this is before her medications and after her medications, it is 122/65. HEENT: Normocephalic, atraumatic. Pupils equally reacting to light and accommodation. Extraocular muscles intact. No JVD, thyromegaly, cervical adenopathy, or throat exudates. No carotid bruits. CARDIOVASCULAR SYSTEM: S1, S2 plus. Rate and rhythm regular. RESPIRATORY SYSTEM: Normal vesicular breath sounds with decreased air entry in the bases. Lungs are clear. ABDOMEN: Soft, nontender. Bowel sounds heard in all quadrants. EXTREMITIES: Without cyanosis, clubbing. CENTRAL NERVOUS SYSTEM: A, A, and O x3. Cranial nerves 2 through 12 intact. Generalized weakness, otherwise nonfocal. IMPRESSION: 1. Chronic obstructive pulmonary disease exacerbation, improving. 2. Chronic hypoxemic respiratory failure. 3. Recent COVID-19 infection. 4. Hypertension. 5. Dyslipidemia. 6. Hypothyroidism. 7. Depression and anxiety. 8. Coronary artery disease and deconditioning. PLAN: 1. Continue current medications. 2. Heart-healthy diet. 3. Monitor respiratory status. 4. Breathing treatments as needed. 5. DVT prophylaxis with PlexiPulses. 6. Decubitus precaution. 7. Stress ulcer prophylaxis. 8. PT, OT eval and treat. 9. Routine laboratory values. 10. Anticipate discharge her home in about 3 to 5 days depending upon how will she improves with therapy and how her respiration does. Discussed with the patient. All questions answered. Job ID: [id number]
[2020-03-02] MEDS: Atorvastatin Calcium 40 MG TAB PO SCH (20:46)
[2020-03-02] MEDS: Amlodipine 5 MG TAB PO SCH (20:46)
[2020-03-03] MEDS: Levothyroxine Sodium 100 MCG TAB PO SCH (05:09)
[2020-03-03] MEDS: predniSONE 5 MG TAB PO SCH (08:21)
[2020-03-03] MEDS: Atenolol 25 MG TAB PO SCH (08:21)
[2020-03-03] MEDS: Aspirin 81 mg Enteric Coated Tablet PO SCH (08:22)
[2020-03-03] MEDS: Lisinopril 10 MG TAB PO SCH (08:22)
[2020-03-03] MEDS: Dexamethasone 4 MG TAB PO SCH (08:22)
[2020-03-03] MEDS: Polyethylene Glycol 3350 17 GM Packet PO SCH (08:23)
[2020-03-03] MEDS: Doxycycline 100 MG CAP PO SCH ×2 (08:23→21:16)
[2020-03-03] MEDS: TRELEGY INH SCH (08:24)
--- NOTE | 2020-03-03 09:31 | PRG ---
DATE OF SERVICE: 03/03/2020 SUBJECTIVE: Ms. Bateman is doing well. She is up in her chair. She states that her breathing continues to improve. She feels like therapy is benefitting her. I advised her that her [email or web address] equipment company, [employer] stated that she does not need a high capacity concentrator. She only needs a 25-foot hose and she apparently got a 120-foot hose connected to it. It is also apparently a portable concentrator, so they are not going to deliver any new equipment, but they did deliver a 23-foot hose. OBJECTIVE: VITAL SIGNS: The patient is afebrile, heart rate is 83, respirations 20, oxygen saturation 96% on 3.5 L, and blood pressure 140/62. CARDIOVASCULAR SYSTEM: S1 and S2 plus. RESPIRATORY SYSTEM: Normal vesicular breath sounds. ABDOMEN: Soft and nontender. Bowel sounds heard in all quadrants. EXTREMITIES: Without cyanosis or clubbing. CENTRAL NERVOUS SYSTEM: Generalized weakness, otherwise nonfocal. IMPRESSION: 1. Chronic obstructive pulmonary disease. 2. Chronic hypoxemic respiratory failure, acute on chronic, improving. 3. Recent COVID-19 infection. 4. Hypertension. 5. Dyslipidemia. 6. Hypothyroidism. 7. Coronary artery disease. 8. Anxiety and depression. PLAN: 1. Continue current medications. 2. Continue therapy. 3. Heart-healthy diet. 4. Monitor respiratory status. 5. DVT prophylaxis with PlexiPulses. 6. Decubitus precaution. 7. Stress ulcer prophylaxis. 8. Routine laboratory values. Job ID: [id number]
[2020-03-03] MEDS: Amlodipine 5 MG TAB PO SCH (21:16)
[2020-03-03] MEDS: Atorvastatin Calcium 40 MG TAB PO SCH (21:17)
[2020-03-04] MEDS: Levothyroxine Sodium 100 MCG TAB PO SCH (05:34)
[2020-03-04] MEDS: Dexamethasone 4 MG TAB PO SCH (09:40)
[2020-03-04] MEDS: Atenolol 25 MG TAB PO SCH (09:40)
[2020-03-04] MEDS: Lisinopril 10 MG TAB PO SCH (09:40)
[2020-03-04] MEDS: Aspirin 81 mg Enteric Coated Tablet PO SCH (09:40)
[2020-03-04] MEDS: Doxycycline 100 MG CAP PO SCH ×2 (09:40→20:38)
[2020-03-04] MEDS: Polyethylene Glycol 3350 17 GM Packet PO SCH (09:41)
[2020-03-04] MEDS: TRELEGY INH SCH (09:53)
[2020-03-04] MEDS: Amlodipine 5 MG TAB PO SCH (20:38)
[2020-03-04] MEDS: Atorvastatin Calcium 40 MG TAB PO SCH (20:38)
[2020-03-05] MEDS: Levothyroxine Sodium 100 MCG TAB PO SCH (05:16)
[2020-03-05] MEDS: Lisinopril 10 MG TAB PO SCH ×2 (08:38→08:39)
[2020-03-05] MEDS: Polyethylene Glycol 3350 17 GM Packet PO SCH (08:38)
[2020-03-05] MEDS: Aspirin 81 mg Enteric Coated Tablet PO SCH (08:39)
[2020-03-05] MEDS: Dexamethasone 4 MG TAB PO SCH (08:39)
[2020-03-05] MEDS: Atenolol 25 MG TAB PO SCH (08:39)
[2020-03-05] MEDS: Doxycycline 100 MG CAP PO SCH ×2 (08:39→21:39)
[2020-03-05] MEDS: TRELEGY INH SCH (08:42)
--- NOTE | 2020-03-05 13:21 | PRG ---
DATE OF SERVICE: 03/05/2020 SUBJECTIVE: Ms. Bateman is up in her chair. She states her breathing is pretty much back to her baseline. She is now on her baseline level of oxygen, which is 3 L. OBJECTIVE: VITAL SIGNS: She is afebrile, heart rate 83, respirations 18, oxygen saturation 94%, blood pressure 107/74. CARDIOVASCULAR SYSTEM: S1 and S2 plus. RESPIRATORY SYSTEM: Normal vesicular breath sounds. ABDOMEN: Soft and nontender. Bowel sounds heard in all quadrants. EXTREMITIES: Without cyanosis or clubbing. CENTRAL NERVOUS SYSTEM: Improving deconditioning. IMPRESSION: 1. Resolved acute on chronic hypoxemic respiratory failure. 2. Recent COVID-19 infection. 3. Resolved chronic obstructive pulmonary disease exacerbation. 4. Chronic obstructive pulmonary disease. 5. Hypertension. 6. Dyslipidemia. 7. Coronary artery disease. 8. Hypothyroidism. 9. Anxiety and depression. 10. Deconditioning. PLAN: 1. Continue current medications. 2. Heart healthy diet. 3. Monitor respiratory status. 4. Breathing treatments as needed. 5. Physical therapy. 6. Routine laboratory values. 7. Discharge planning. Job ID: [id number]
--- NOTE | 2020-03-05 13:30 | PRG ---
DATE OF SERVICE: 03/04/2020 SUBJECTIVE: Ms. Bateman is up in her chair. She states that her breathing is improving. She is happy with her progress. She denies any questions or concerns. I did advise her to do some bedside exercises since therapy is not here on the weekend. OBJECTIVE: VITAL SIGNS: She is afebrile, heart rate is 86, respirations 19, oxygen saturation 96% on 3.5 L, blood pressure 154/72. CARDIOVASCULAR SYSTEM: S1 and S2 plus. RESPIRATORY SYSTEM: Normal vesicular breath sounds with prolonged expiratory phase and occasional wheeze. ABDOMEN: Soft, nontender. Bowel sounds heard in all quadrants. EXTREMITIES: Without cyanosis or clubbing. CENTRAL NERVOUS SYSTEM: Generalized weakness. Otherwise, nonfocal. IMPRESSION: 1. Recent COVID-19 infection. 2. Hypoxemia, which resolved with placement of oxygen here, likely due to dysfunction of her concentrator at home, which has been sorted out. 3. Possible chronic obstructive pulmonary disease exacerbation, which is improving. 4. Hypertension. 5. Dyslipidemia. 6. Hypothyroidism. 7. Coronary artery disease. 8. Anxiety and depression. PLAN: 1. Continue current medications. 2. Heart-healthy diet. 3. Breathing treatments. 4. DVT prophylaxis. 5. Decubitus precautions. 6. Stress ulcer prophylaxis. 7. Titrate oxygen back to her baseline level. 8. Anticipate discharge her home in the next few days. Job ID: [id number]
[2020-03-05] MEDS: Atorvastatin Calcium 40 MG TAB PO SCH (21:40)
[2020-03-05] MEDS: Amlodipine 5 MG TAB PO SCH (21:40)
[2020-03-06 05:25] LABS: #Basophils 0.1 thou/uL (0.0-0.2); #Lymphocytes 1.6 thou/uL (1.20-3.40); #Monocytes 0.4 thou/uL (0.11-0.59); #Neutrophils 6.6 thou/uL (1.40-6.50); %Basophils 0.7 % (0.0-1.0); %Eosinophils 0.5 % (0.0-10.0); %Lymphocytes 17.8 % (21.0-51.0); %Monocytes 4.9 % (0.0-10.0); Hemoglobin 12.1 g/dL (12.0-16.0); Mean Corpuscular HGB CONC 31.6 g/dL (32.0-36.0); Mean Corpuscular Hemoglobin 27.1 pg (27.0-31.0); Mean Corpuscular Volume 85.9 fL (78.0-98.0); Mean Platelet Volume 6.5 fL (7.4-10.4); Platelet Count 186 thou/uL (130-400); RBC Distribution Width 13.2 % (11.5-14.5); Red Blood Cell (RBC) Count 4.46 mill/uL (4.20-5.40); White Blood Cell (WBC) Count 8.7 thou/uL (4.8-10.8)
[2020-03-06 05:37] LABS: Anion Gap 12 mmol/L (10-20); BUN (Urea Nitrogen) 16 mg/dL (9.8-20.1); Calc. Creatinine Clearance 53 mL/min (70-130); Calcium 8.2 mg/dL (7.8-10.44); Carbon Dioxide 27 mmol/L (23-31); Chloride 101 mmol/L (98-107); Glucose 89 mg/dL (83-110); Potassium 4.5 mmol/L (3.5-5.1); Sodium 135 mmol/L (136-145)
[2020-03-06] MEDS: Levothyroxine Sodium 100 MCG TAB PO SCH (05:39)
[2020-03-06] MEDS: Atenolol 25 MG TAB PO SCH (08:37)
[2020-03-06] MEDS: Dexamethasone 4 MG TAB PO SCH (08:37)
[2020-03-06] MEDS: Aspirin 81 mg Enteric Coated Tablet PO SCH (08:37)
[2020-03-06] MEDS: Doxycycline 100 MG CAP PO SCH (08:38)
[2020-03-06] MEDS: TRELEGY INH SCH (08:38)
[2020-03-06] MEDS: Polyethylene Glycol 3350 17 GM Packet PO SCH ×2 (08:38→08:42)
[2020-03-06] MEDS: Lisinopril 10 MG TAB PO SCH (08:39)
--- NOTE | 2020-03-06 13:44 | PRG ---
DATE OF SERVICE: 03/06/2020 SUBJECTIVE: Ms. Bateman is up in her chair. She denies any complaints. She is happy with her progress. Discussed with therapy and they feel like the patient will benefit from at least a few more days and they think the early Friday. was not happy, but she is agreeable. She states that her respirations are pretty much back to her baseline. OBJECTIVE: VITAL SIGNS: She is afebrile, heart rate 79, respirations 18, oxygen saturation 92% on 3 L, blood pressure is 187/81. They did not recheck it after they gave her morning medications. I did advise nurses to check it now and call me if it is more than 140/90. CARDIOVASCULAR SYSTEM: S1-S2 plus. RESPIRATORY SYSTEM: Normal vesicular breath sounds. ABDOMEN: Soft and nontender. Bowel sounds heard in all quadrants. EXTREMITIES: Without cyanosis or clubbing. CENTRAL NERVOUS SYSTEM: Improving deconditioning. IMPRESSION: 1. Chronic obstructive pulmonary disease with resolved exacerbation. 2. Resolved acute on chronic hypoxemic respiratory failure. She is now back to her baseline level of 3 L of oxygen via nasal cannula. 3. Recent COVID-19 infection. 4. Hypertension. 5. Dyslipidemia. 6. Hypothyroidism. 7. Anxiety and depression. PLAN: 1. Continue current medications. 2. Heart healthy diet. 3. Monitor respiratory status. 4. DVT prophylaxis with PlexiPulses. 5. Decubitus precautions. 6. Stress ulcer prophylaxis. 7. Reduce Decadron to 2 mg for 3 more days, then stop. 8. Discontinue doxycycline as she has finished her 14 days. 9. Continue therapy. Job ID: [id number]
[2020-03-06] MEDS: Atorvastatin Calcium 40 MG TAB PO SCH (20:54)
[2020-03-06] MEDS: Amlodipine 5 MG TAB PO SCH (20:55)
[2020-03-07] MEDS: Levothyroxine Sodium 100 MCG TAB PO SCH (05:32)
[2020-03-07] MEDS: Atenolol 25 MG TAB PO SCH (09:10)
[2020-03-07] MEDS: Aspirin 81 mg Enteric Coated Tablet PO SCH (09:10)
[2020-03-07] MEDS: Dexamethasone 1 MG TAB PO SCH (09:11)
[2020-03-07] MEDS: Lisinopril 10 MG TAB PO SCH (09:12)
[2020-03-07] MEDS: Polyethylene Glycol 3350 17 GM Packet PO SCH (09:13)
[2020-03-07] MEDS: TRELEGY INH SCH (09:14)
[2020-03-07] MEDS: Amlodipine 5 MG TAB PO SCH (20:55)
[2020-03-07] MEDS: Atorvastatin Calcium 40 MG TAB PO SCH (20:55)
--- NOTE | 2020-03-08 05:20 | PRG ---
DATE OF SERVICE: 03/07/2020 SUBJECTIVE: Ms. Bateman is up in her chair. She just finished lunch. Her daughter is in the room. She apparently had a good therapy session and she walked 120 feet. The patient states that she does need a new prescription for a nebulizer as her current one is not working. They use [employer] . Discussed with daughter and all questions answered. OBJECTIVE: VITAL SIGNS: She is afebrile. Heart rate is 77, respirations 18, oxygen saturation 96% on 3 L, blood pressure 132/71. CARDIOVASCULAR: S1, S2 plus. RESPIRATORY: Normal vesicular breath sounds with scattered rhonchi. ABDOMEN: Soft, nontender. Bowel sounds heard in all quadrants. EXTREMITIES: Without cyanosis or clubbing. CENTRAL NERVOUS SYSTEM: Improving deconditioning. IMPRESSION: 1. Recent COVID-19 infection. 2. Chronic obstructive pulmonary disease. 3. Chronic hypoxemic respiratory failure. 4. Hypertension. 5. Dyslipidemia. 6. Hypothyroidism. 7. Depression and anxiety. 8. Deconditioning. PLAN: 1. Continue current medications. 2. Heart-healthy diet. 3. Monitor respiratory status. 4. Physical therapy. 5. Discharge planning. 6. Write an order for nebulizer to be delivered to her home. 7. Discussed with the patient and daughter in detail. All questions answered. Job ID: [id number]
[2020-03-08] MEDS: Levothyroxine Sodium 100 MCG TAB PO SCH (06:01)
[2020-03-08] MEDS: Dexamethasone 1 MG TAB PO SCH (09:17)
[2020-03-08] MEDS: Polyethylene Glycol 3350 17 GM Packet PO SCH (09:17)
[2020-03-08] MEDS: Aspirin 81 mg Enteric Coated Tablet PO SCH (09:17)
[2020-03-08] MEDS: Lisinopril 10 MG TAB PO SCH (09:17)
[2020-03-08] MEDS: Atenolol 25 MG TAB PO SCH (09:17)
[2020-03-08] MEDS: TRELEGY INH SCH (09:23)
[2020-03-08] MEDS ORDERED: Lisinopril 10 MG TAB PO SCH (12:15)
--- NOTE | 2020-03-08 12:57 | PRG ---
DATE OF SERVICE: 03/08/2020 SUBJECTIVE: Ms. Bateman is up in her bed. She states that she walked all the way around the nurse's station today. Therapy is recommending a four-wheeled walker. They are anticipating her to be ready for discharge early next week, but the patient is really wanting to go home this Friday. I will talk to therapy tomorrow. OBJECTIVE: VITAL SIGNS: She is afebrile, heart rate 84, respirations 20, oxygen saturation 94% on 3 L, blood pressure was 130/61, but with therapy, it was 170/96. Did increase her lisinopril from 10 to 20 mg this morning. CARDIOVASCULAR SYSTEM: S1 and S2 plus. RESPIRATORY SYSTEM: Normal vesicular breath sounds. Occasional rhonchi. ABDOMEN: Soft, nontender. Bowel sounds heard in all quadrants. EXTREMITIES: Without cyanosis or clubbing. CENTRAL NERVOUS SYSTEM: Generalized weakness. Otherwise, nonfocal, improving deconditioning. IMPRESSION: 1. Chronic obstructive pulmonary disease. 2. Chronic hypoxemic respiratory failure. 3. Recent COVID-19 infection. 4. Hypertension. 5. Dyslipidemia. 6. Hypothyroidism. 7. Depression and anxiety. 8. Improving deconditioning. PLAN: 1. Continue current medications, but increase lisinopril to 20 mg in the morning. 2. Heart-healthy diet. 3. Monitor blood pressure and adjust medications. 4. Monitor respiratory status and breathing treatments as needed. 5. Physical therapy. 6. Routine laboratory values. 7. Discharge planning. 8. Order her rolling walker. Job ID: [id number]
[2020-03-08] MEDS: Atorvastatin Calcium 40 MG TAB PO SCH (20:38)
[2020-03-08] MEDS: Amlodipine 5 MG TAB PO SCH (20:38)
[2020-03-09] MEDS: Levothyroxine Sodium 100 MCG TAB PO SCH (05:04)
[2020-03-09] MEDS: TRELEGY INH SCH (09:33)
[2020-03-09] MEDS: Polyethylene Glycol 3350 17 GM Packet PO SCH (09:34)
[2020-03-09] MEDS: Atenolol 25 MG TAB PO SCH (09:34)
[2020-03-09] MEDS: Dexamethasone 1 MG TAB PO SCH (09:34)
[2020-03-09] MEDS: Aspirin 81 mg Enteric Coated Tablet PO SCH (09:34)
[2020-03-09] MEDS: Lisinopril 20 MG TAB PO SCH (09:34)
--- NOTE | 2020-03-09 13:55 | PRG ---
DATE OF SERVICE: 03/09/2020 SUBJECTIVE: Ms. Bateman is doing well. She walked about 230 feet. Discussed with PT and OT, both feel that she is safe to go home tomorrow. I spoke with her daughter. Daughter has ordered her four-wheeled walker already. She will come by and pick her up about 1 o'clock tomorrow. She would like home health and the patient states she wants to use the same home health she used in the past and she thinks it was [facility], I am going to contact them and hopefully they can admit her over the weekend. I am going to review her medicines, but she is not on anything new other than her lisinopril dose increased and also in the prescription. OBJECTIVE: VITAL SIGNS: She is afebrile, heart rate 77, respirations 18, oxygen saturation 95% on 3 L nasal cannula, and blood pressure 161/70. CARDIOVASCULAR SYSTEM: S1 and S2 plus. Rate and rhythm regular. RESPIRATORY SYSTEM: Normal vesicular breath sounds. ABDOMEN: Soft and nontender. Bowel sounds heard in all quadrants. EXTREMITIES: Without cyanosis or clubbing. IMPRESSION: 1. Chronic obstructive pulmonary disease. 2. Chronic hypoxemic respiratory failure. 3. Recent COVID-19 infection. 4. Hypertension. 5. Dyslipidemia. 6. Deconditioning. PLAN: 1. Continue current medications. 2. Discharge planning. 3. Arrange home health. 4. Continue therapy. 5. Discussed with the patient and daughter in detail. All questions answered. Job ID: [id number]
[2020-03-09] MEDS: Amlodipine 5 MG TAB PO SCH (20:30)
[2020-03-09] MEDS: Atorvastatin Calcium 40 MG TAB PO SCH (20:31)
[2020-03-10] MEDS: Levothyroxine Sodium 100 MCG TAB PO SCH (05:21)
[2020-03-10] MEDS: Aspirin 81 mg Enteric Coated Tablet PO SCH (07:58)
[2020-03-10] MEDS: Polyethylene Glycol 3350 17 GM Packet PO SCH (07:58)
[2020-03-10] MEDS: Atenolol 25 MG TAB PO SCH (07:59)
[2020-03-10] MEDS: TRELEGY INH SCH (07:59)
[2020-03-10] MEDS: Lisinopril 20 MG TAB PO SCH (07:59)
[2020-03-10 08:05] VITALS: BP 169/72; TEMP 95.6
--- NOTE | 2020-03-10 21:49 | DIS ---
DATE OF ADMISSION: 03/01/2020 DATE OF DISCHARGE: 03/10/2020 PRINCIPAL DIAGNOSES: 1. Recent COVID-19 infection. 2. Hypoxemia, which resolved with placing her on oxygen here in the hospital. 3. Resolved acute on chronic hypoxemic respiratory failure. 4. Chronic hypoxemic respiratory failure. 5. Possible chronic obstructive pulmonary disease exacerbation, which has resolved. 6. Coronary artery disease. 7. Hypertension. 8. Dyslipidemia. 9. Hypothyroidism. 10. Chronic obstructive pulmonary disease. 11. Osteoarthritis. 12. Depression, anxiety. 13. Deconditioning. COMPLICATIONS: None. ADVERSE REACTIONS: None. PROCEDURES: None. CONSULTATIONS: None. HOSPITAL COURSE: The patient was admitted with hypoxemia, but when she came to the hospital, when she was placed on oxygen, her oxygen levels came back up to her baseline which is 93% to 97%. It was felt that she may have a malfunction of her oxygen equipment at home, so she was admitted to the hospital for monitoring while that can be checked out. Apparently, the problem was that she had a 125-foot hose attached to her concentrator where it should be only a 25-foot hose. While in the hospital, she did develop some worsening shortness of breath where her oxygen had to be bumped up to 4 L. I placed her back on her DuoNeb via nebulizer and she was continued on her dexamethasone and doxycycline as she recently was treated for COVID-19 infection. She slowly responded. She was tapered back to her baseline level of 3 L of oxygen. She also participated with therapy and eventually was able to walk about 230 feet. She was deemed stable for discharge to home. The only thing therapy recommended was a rolling walker. Daughter has made arrangements for her 25-foot hose. The patient was deemed stable to discharge home. Orders were also written for a nebulizer that the patient needed. Her blood pressure medicine was increased from 10 mg to 20 mg of lisinopril and that prescription was also sent to [facility]. She is to continue on her Trelegy. PHYSICAL EXAMINATION: VITAL SIGNS: On the day of discharge, the patient is afebrile. Heart rate is 80, respirations 20, oxygen saturation was 92% on 2.5 L, blood pressure 169/72. CARDIOVASCULAR SYSTEM: S1, S2 plus. RESPIRATORY SYSTEM: Normal vesicular breath sounds. ABDOMEN: Soft, nontender. Bowel sounds heard in all quadrants. EXTREMITIES: Without cyanosis or clubbing. CENTRAL NERVOUS SYSTEM: Nonfocal. DISCHARGE MEDICATIONS: 1. Amlodipine. 2. Atorvastatin, which is Caduet 10/80 one tablet at bedtime. 3. Aspirin 81 mg daily. 4. Atenolol 25 mg daily. 5. Trelegy Ellipta one inhalation daily. She is to gargle after use. 6. DuoNeb 3 mL q.4 p.r.n. 7. Levothyroxine 100 mcg daily. 8. Lisinopril 20 mg in the morning. 9. MiraLAX 17 g in 8 ounces of water daily. DISCHARGE INSTRUCTIONS: Heart-healthy diet. Activity as tolerated. Continue using oxygen at all times. Home health has been arranged with the [facility] for therapy. The patient does qualify for home health as she is homebound and she does require therapy. She also needs fdc visit to monitor her oxygen status. Please consider this note as a [id number] documentation. The patient is to follow up in my office in two weeks. She is to call us with any questions or concerns. For full details, please see chart. TIME SPENT: Total time spent on this discharge including coordination of care was 37 minutes. Job ID: [id number]
== END 2020-03-10 13:25 | disposition home health service (06) | DRG 189 ==
LOC: NAV ACUTE 15:13
PROVIDERS: ADMIT Internal Medicine; ATTEND Internal Medicine
DX: J96.21 Acute and chronic respiratory failure with hypoxia (principal); J44.1 Chronic obstructive pulmonary disease with (acute) exacerbation; I25.10 Atherosclerotic heart disease of native coronary artery without angina pectoris; I10 Essential (primary) hypertension; E78.5 Hyperlipidemia, unspecified; E03.9 Hypothyroidism, unspecified; M19.90 Unspecified osteoarthritis, unspecified site; F41.9 Anxiety disorder, unspecified; F32.9 Major depressive disorder, single episode, unspecified; Z79.51 Long term (current) use of inhaled steroids; Z79.899 Other long term (current) drug therapy; Z79.890 Hormone replacement therapy; Z87.891 Personal history of nicotine dependence
CPT/HCPCS: 80048; 85025; J7512; J7620; J8540

== ENCOUNTER 2020-08-07 22:15 | Emergency (ER) | payer MEDICARE, BC ==
[2020-08-07] MEDS ORDERED: Albuterol Sulfate 2.5 mg/0.5 ml Neb ONE (22:34)
[2020-08-07] MEDS ORDERED: Sodium Chloride 0.9% 1,000 ML ONE (22:37)
[2020-08-07] MEDS ORDERED: methylPREDNISolone Sod Succ/PF 125 MG/2 ML VIAL ONE (22:38)
[2020-08-07] MEDS ORDERED: Magnesium 2 GM/50 ML BAG (IN WATER) ONE (22:38)
[2020-08-07 22:55] LABS: #Basophils 0.1 thou/uL (0.0-0.2); #Eosinphils 0.2 thou/uL (0.0-0.7); #Monocytes 0.7 thou/uL (0.11-0.59); #Neutrophils 10.8 thou/uL (1.40-6.50); %Basophils 0.9 % (0.0-1.0); %Eosinophils 1.3 % (0.0-10.0); %Lymphocytes 14.5 % (21.0-51.0); %Monocytes 4.9 % (0.0-10.0); %Neutrophils 78.4 % (42.0-75.0); Hemoglobin 12.7 g/dL (12.0-16.0); Mean Corpuscular HGB CONC 30.7 g/dL (32.0-36.0); Mean Corpuscular Hemoglobin 26.7 pg (27.0-31.0); Mean Platelet Volume 7.1 fL (7.4-10.4); Platelet Count 254 thou/uL (130-400); RBC Distribution Width 14.4 % (11.5-14.5); Red Blood Cell (RBC) Count 4.76 mill/uL (4.20-5.40); White Blood Cell (WBC) Count 13.7 thou/uL (4.8-10.8)
[2020-08-07 23:03] LABS: ALT (SGPT) 13 U/L (8-55); AST (SGOT) 13 U/L (5-34); Albumin 3.8 g/dL (3.4-4.8); Alkaline Phosphatase 83 U/L (40-110); Anion Gap 15 mmol/L (10-20); BUN (Urea Nitrogen) 11 mg/dL (9.8-20.1); Bilirubin, Total 0.5 mg/dL (0.2-1.2); CK (CPK) 48 U/L (29-168); Calc. Creatinine Clearance 0 mL/min (70-130); Calcium 8.8 mg/dL (7.8-10.44); Carbon Dioxide 23 mmol/L (23-31); Chloride 104 mmol/L (98-107); Globulin 3.5 g/dL (2.4-3.5); Glucose 121 mg/dL (83-110); Potassium 4.1 mmol/L (3.5-5.1); Protein, Total 7.3 g/dL (5.8-8.1); Sodium 138 mmol/L (136-145)
== END 2020-08-08 00:38 | disposition home or self-care (01) ==
LOC: NAV ERS 22:15
DX: J44.1 Chronic obstructive pulmonary disease with (acute) exacerbation (principal); I10 Essential (primary) hypertension; E03.9 Hypothyroidism, unspecified; Z87.891 Personal history of nicotine dependence; Z79.82 Long term (current) use of aspirin; Z79.52 Long term (current) use of systemic steroids; Z79.899 Other long term (current) drug therapy
CPT/HCPCS: 71045; 80053; 82550; 83605; 84484; 85025; 87040; 87807; 93005; 94640; 96365; 96375; J2930; J3475; J7050; J7611; J7620

== ENCOUNTER 2021-07-05 10:54 | Outpatient (CLI) | payer MEDICARE, BC | END 2021-07-05 10:55 | disposition home or self-care (01) | LOC: NAV RAD 10:54 | PROVIDERS: ATTEND Family Medicine | DX: R06.02 Shortness of breath (principal) | CPT/HCPCS: 71046 ==